=== PATIENT | female | born 1980 | race Caucasian/White ===

== ENCOUNTER 2017-02-18 12:12 | Emergency (ER) | payer BC ==
[2017-02-18 14:36] VITALS: BP 114/69
--- NOTE | 2017-02-18 14:50 | UC ---
Respiratory Complaint HPI - History of Current Complaint Chief Complaint: UCGeneralIllness Stated Complaint: RESPIRATORY Time Seen by Provider: 02/18/17 14:42 Hx Obtained From: Patient Hx Last Menstrual Period: 02/05/17 Onset/Duration: Gradual Onset, Lasting Weeks - 3, Worse Since - onset. No improvement with zpak. Timing: Constant Severity Initially: Mild Severity Currently: Severe Character: Cough: Productive - occasional Alleviating Factors: Nothing Associated Signs And Symptoms: Positive: Fever, Chills, Nasal Congestion, Hoarseness - Risk Factors Pulmonary Embolism Risk Factors: Smoking Cardiac Risk Factors: Smoking Pseudomonas Risk Factors: Negative Tuberculosis Risk Factors: Negative - Allergies/Home Medications Allergies/Adverse Reactions: Allergies Allergy/AdvReac Type Severity Reaction Status Date / Time Ketorolac Tromethamine Allergy See Comment Verified 02/18/17 14:37 [From Toradol] Meperidine [From Demerol HCl] Allergy hives, Verified 02/18/17 14:37 respiratory depression Home Medications: Home Medications Acetaminophen [Acetaminophen Extra Stren] 2 tab PO Q6HR PRN 02/18/17 [History Confirmed 02/18/17] Atorvastatin* [Lipitor 10 MG*] 1 tab PO DAILY 02/18/17 [History Confirmed ] Pramipexole Dihydrochloride [Mirapex] 2 mg PO BEDTIME 02/18/17 [History Confirmed 02/18/17] PMH/Surg Hx/FS Hx/Imm Hx Cardiovascular History Of: Denies: Pacemaker/ICD Respiratory History Of: Denies: Asthma Neurological History Of: Reports: Migraine - A MONTH AGO Psychological History Of: Reports: Anxiety, Depression - Surgical History Surgical History: Yes Surgery Procedure, Year, and Place: MULTIPLE L ARM FOR TORN TENDON,BONE SPUR X5 [phone].R [facility]RIST [facility],APPENDIX 2002,GALLBLADDER 2000, TUBAL LIGATION 2008,L5-S1 LAMINECTOMY SURGERY 2010 [facility] [place].L5-S1 FUSION, [place], 2013 - Family History Known Family History: Positive: Cardiac Disease, Hypertension, Diabetes - Social History Occupation: Employed Full-time Lives: With Family Alcohol Use: None Substance Use Type: None Smoking Status (MU): Current Every Day Smoker Type: Cigarettes Amount Used/How Often: 1/2 PPD Have You Smoked in the Last Year: No Cessation Counseling: Patient Advised to Stop Review of Systems Constitutional: Fever, Chills, Fatigue ENT: Sore Throat, Nasal Discharge Respiratory: Cough Gastrointestinal: Vomiting - post tussive Neurological: Headache - frontal sinus headache with coughing. All Other Systems Reviewed And Are Negative: Yes Physical Exam Triage Information Reviewed: Yes Appearance: Well-Nourished, Ill-Appearing, Pain Distress Vital Signs: Initial Vital Signs Temp 98.8 F 02/18/17 14:30 Pulse 79 02/18/17 14:30 Resp 16 02/18/17 14:30 BP 114/69 02/18/17 14:30 Pulse Ox 99 02/18/17 14:30 Vital Signs Reviewed: Yes Eye Exam: Normal ENT: Positive: Pharynx normal, Nasal congestion - with allergic changes., TMs normal Dental Exam: Normal Neck exam: Normal Respiratory: Positive: Wheezing - diffuse expiratory wheezes. Worse with coughing. Cardiovascular Exam: Normal Musculoskeletal Exam: Normal Neurological Exam: Normal Psychological Exam: Normal Skin Exam: Normal UC Diagnostic Evaluation - Laboratory O2 Sat by Pulse Oximetry: 99 Respiratory Course/Dx - Differential Dx/Diagnosis Differential Diagnosis/HQI/PQRI: Asthma, Lower Resp Infection, Sinusitis Provider Diagnoses: Acute URI. Acute sinusitis. Acute bronchospasm. Allergic rhinitis. Nicotine dependence. Discharge - Discharge Plan Condition: Stable Disposition: HOME Prescriptions: Albuterol HFA INHALER* [Ventolin HFA Inhaler*] 2 puff INH Q4H PRN #1 mdi PRN Reason: Wheezing Sulfamethox/Trimethoprim DS* [Bactrim DS 800/160 TAB*] 1 tab PO BID #20 tab predniSONE TAB* [Deltasone TAB*] 20 mg PO DAILY #18 tab Patient Education Materials: Upper Respiratory Infection (ED), Sinusitis (ED), Sulfamethoxazole/Trimethoprim (By mouth), Bronchospasm (ED), Prednisone (By mouth), Albuterol (By breathing) Additional Instructions: Smoking Cessation Tricks. 1. Cut down by 1 cigarette per day every 2-3 days. Write the number of smokes for that day on the calendar. 2. Identify triggers to smoking: after meals, on the phone, in the car, with coffee, on breaks at work, etc. 3. Formulate a plan with a behavior to replace the smoking. Fireballs in the car , doodle pad on the phone, flavored creamer for the coffee, go for a walk after a meal or on break at work. 4. For stress smokes do deep breathing relaxation. Breath deep in through the nose hold the breath in for a few seconds then breath out slowly through the mouth. [employer] SINUS RINSE: CHECK OUT AT [employer] Saline nasal wash helps with mucous, allergies and congestion. It can be used up to twice a day or only as needed. Use lukewarm tap water. It does not have to be sterilized or distilled water. Do 1/3 on each side and snort out of both nostrils. Repeat the process with 1/6 of the bottle on each side with snorting in between to finish the solution in the bottle
== END 2017-02-18 15:17 | disposition home or self-care (01) ==
LOC: UCCORT 12:12
DX: J06.9 Acute upper respiratory infection, unspecified (principal); J01.90 Acute sinusitis, unspecified; J98.01 Acute bronchospasm; J30.9 Allergic rhinitis, unspecified; F17.210 Nicotine dependence, cigarettes, uncomplicated
CPT/HCPCS: 99212; G0463

== ENCOUNTER 2020-01-15 13:49 | Emergency (ER) | payer OTHER ==
--- NOTE | 2020-01-15 14:52 | UC ---
FLU HPI - HPI Summary HPI Summary: 39yo female presenting with dry cough, nasal congestion, and sore throat x3-4 days. Denies sob, chest pain, wheezing, and difficulty breathing. Denies known fevers and body aches. Notes chills. Denies n/v. Notes decreased appetite. 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 Would like flu and covid 19 testing today. Denies taking anything for symptom relief. Denies h/o lung disorders but states she has been smoking 1/2ppd for 20 years. - History of Current Complaint Stated Complaint: ST,COUGH Hx Obtained From: Patient Hx Last Menstrual Period: ablation 12/2019 Pain Intensity: 0 Pain Scale Used: 0-10 Numeric - Allergy/Home Medications Allergies/Adverse Reactions: Allergies Allergy/AdvReac Type Severity Reaction Status Date / Time meperidine [From Demerol] Allergy Severe respiratory Verified 01/15/20 14:34 /hives Home Medications: Home Medications ALPRAZolam [Xanax] 1 mg PO BEDTIME 01/15/20 [History Confirmed 01/15/20] Amitriptyline TAB* [Elavil TAB*] 25 mg PO BEDTIME 01/15/20 [History Confirmed ] Atorvastatin* [Lipitor*] 10 mg PO QPM 01/15/20 [History Confirmed 01/15/20] Escitalopram Oxalate [Lexapro] 30 mg PO BEDTIME 01/15/20 [History Confirmed 12/04] Ketorolac TAB * [Toradol TAB *] 10 mg PO Q6H PRN 01/15/20 [History Confirmed 12/04] Propranolol LA 120 mg CAP [Inderal LA 120 mg CAP] 120 mg PO DAILY 01/15/20 [ History Confirmed 01/15/20] PMH/Surg Hx/FS Hx/Imm Hx Endocrine History: Dyslipidemia Cardiovascular History: Hypertension - Surgical History Surgical History: Yes Surgery Procedure, Year, and Place: MULTIPLE L ARM FOR TORN TENDON,BONE SPUR X5 [phone].R [facility] [place]APPENDIX 2002,GALLBLADDER 2000, TUBAL LIGATION 2008,L5-S1 LAMINECTOMY SURGERY 2010 [facility] [place].L5-S1 [place]USION, [place],. uterin ablation 12/2019 - Family History Known Family History: Positive: Cardiac Disease, Hypertension, Diabetes - Social History Alcohol Use: None Substance Use Type: None Smoking Status (MU): Heavy Every Day Tobacco Smoker Type: Cigarettes Amount Used/How Often: 1/2 PPD Have You Smoked in the Last Year: No Review of Systems All Other Systems Reviewed And Are Negative: Yes Constitutional: Positive: Chills. Negative: Fever ENT: Positive: Sore Throat, Sinus Congestion Respiratory: Positive: Cough. Negative: Shortness Of Breath Cardiovascular: Positive: Negative Gastrointestinal: Positive: Negative Musculoskeletal: Positive: Negative Neurological/Mental Status: Positive: Negative Physical Exam - Summary Physical Exam Summary: Vital Signs Reviewed: Yes A+Ox3, no distress Eyes: Conjunctiva Clear ENT: Hearing grossly normal, TM x 2 clear, moist, uvula midline, no exudate, no erythema Neck: Positive: Supple, no LAD Respiratory: Positive: No respiratory distress, No accessory muscle use + CTA throughout no w/r, coarse cough throughout exam Cardiovascular: RRR nl s1, s2 no m/r Musculoskeletal Exam: KENNEY x 4 without difficulty Neurological: Positive: Alert Psychological: Positive: age appropriate behavior Skin: Positive: no rash, no ecchymosis Vital Signs: Lab Results 01/15/20 01/15/20 Range/Units 15:13 15:14 Influenza A (Rapid) Negative (Negative) Influenza B (Rapid) Negative (Negative) Group A Strep Rapid Negative (Negative) Vital Signs (72 hours) 01/15/20 15:09 Temperature 97.6 F Pulse Rate 79 Respiratory 16 Rate Blood Pressure 110/70 (mmHg) O2 Sat by Pulse 100 Oximetry Flu Course/Dx - Course Course Of Treatment: Flu and strep tests were negative. I discussed results with the patient and informed her that she would receive the covid19 results within the next 3-5 days. I discussed self quarantining until results have been received and she is instructed otherwise. I instructed to continue with symptomatic treatment and to refrain from smoking. Instructed to go to the ED if she experiences shortness of breath/difficulty breathing. Patient voiced understanding and agreed with treatment plan. All questions answered to the best of my abilities. - Differential Dx/Diagnosis Provider Diagnosis: Viral URI with cough Discharge ED - Sign-Out/Discharge Documenting (check all that apply): Patient Departure All imaging exams completed and their final reports reviewed: No Studies - Discharge Plan Condition: Stable Disposition: HOME Patient Education Materials: Upper Respiratory Infection (ED) Forms: COVID-19 Tested & Isolation Referrals: Gt Carreon MD [Primary Care Provider] - Additional Instructions: As discussed, your strep and flu tests were negative today. You also received testing for covid 19. You will be notified of the results within 3-5 days. You need to self-quarantine for the next 14 days unless otherwise advised by a healthcare provider. This means staying home and no contact with anyone who lives with you. You should not share your bedroom or bathroom. Food should be left outside your door for you to take once the other person has walked away. You may continue with tylenol. Increase your fluid intake. Go to the nearest emergency room or call 911 if you experience new or worsening symptoms. - Billing Disposition and Condition Condition: STABLE Disposition: Home
[2020-01-15 15:09] VITALS: BP 110/70
[2020-01-15 15:26] LABS: Influenza A Molecular Negative (Negative); Influenza B Molecular Negative (Negative)
== END 2020-01-15 15:35 | disposition home or self-care (01) ==
LOC: UCCORT 13:49
DX: J06.9 Acute upper respiratory infection, unspecified (principal); R05 Cough; Z88.5 Allergy status to narcotic agent; E78.5 Hyperlipidemia, unspecified; I10 Essential (primary) hypertension; Z79.899 Other long term (current) drug therapy; F17.210 Nicotine dependence, cigarettes, uncomplicated; Z20.828 Contact with and (suspected) exposure to other viral communicable diseases
CPT/HCPCS: 87635; 87651; 99211; G0463